=== PATIENT | male | born 1980 | race Caucasian/White ===

== ENCOUNTER 2016-10-29 20:02 | Inpatient (IN) | payer OTHER ==
[2016-10-29 21:04] VITALS: BP 134/81; PULSE 103; TEMP 97.6; BMI 26.4
--- NOTE | 2016-10-29 21:20 | HP ---
CIWA Score - CIWA Score Nausea/Vomitin-Mild Nausea/No Vomiting Muscle Tremors: 4-Moderate,w/Arms Extend Anxiety: 4-Mod. Anxious/Guarded Agitation: 4-Moderately Restless Paroxysmal Sweats: 3 Orientation: 2-Disoriented Date<2 days Tacttile Disturbances: 0-None Auditory Disturbances: 0-None Visual Disturbances: 0-None Headache: 2-Mild CIWA-Ar Total Score: 20 Admission ROS BHS - HPI Chief Complaint: C/O WITHDRAWAL SX'S. SEEKING DETOX TXMENT. Allergies/Adverse Reactions: Allergies Allergy/AdvReac Type Severity Reaction Status Date / Time No Known Allergies Allergy Verified 10/29/16 20:54 History of Present Illness: 36 Y.O. MALE WITH BENZO DEPENDENCE HERE FOR DETOX TXMENT. DENIES ANY SIGNIFICANT CLEAN TIME. Exam Limitations: No Limitations - Ebola screening Have you traveled outside of the country in the last 21 days: No (N) Have you had contact with anyone from an Ebola affected area: No Have you been sick,other than usual withdrawal symptoms: No Do you have a fever: No - Review of Systems Constitutional: Chills, Loss of Appetite, Night Sweats, Changes in sleep EENT: reports: No Symptoms Reported Respiratory: reports: No Symptoms reported Cardiac: reports: No Symptoms Reported GI: reports: Nausea, Poor Appetite : reports: No Symptoms Reported Musculoskeletal: reports: No Symptoms Reported, Back Pain Integumentary: reports: No Symptoms Reported Neuro: reports: No Symptoms reported Endocrine: reports: No Symptoms Reported Hematology: reports: No Symptoms Reported Psychiatric: reports: Anxious, Disorientated Other Systems: Reviewed and Negative Patient History - Patient Medical History Hx Anemia: No Hx Asthma: No Hx Chronic Obstructive Pulmonary Disease (COPD): No Hx Cancer: No Hx Cardiac Disorders: No Hx Congestive Heart Failure: No Hx Hypertension: No Hx Hypercholesterolemia: No Hx Pacemaker: No HX Cerebrovascular Accident: No Hx Seizures: No Hx Dementia: No Hx Diabetes: No Hx Gastrointestinal Disorders: No Hx Liver Disease: No Hx Genitourinary Disorders: No Hx Sexually Transmitted Disorders: No Hx Renal Disease (ESRD): No Hx Thyroid Disease: No Hx Human Immunodeficiency Virus (HIV): No Hx Hepatitis C: No Hx Depression: Yes Hx Suicide Attempt: No Hx Bipolar Disorder: No Hx Schizophrenia: No Other Medical History: ADD - Patient Surgical History Past Surgical History: No Hx Neurologic Surgery: No Hx Cataract Extraction: No Hx Cardiac Surgery: No Hx Lung Surgery: No Hx Breast Surgery: No Hx Breast Biopsy: No Hx Abdominal Surgery: No Hx Appendectomy: No Hx Cholecystectomy: No Hx Genitourinary Surgery: No Hx Section: No Hx Orthopedic Surgery: No Anesthesia Reaction: No - PPD History Previous Implant?: Yes Documented Results: Negative w/o proof Implanted On Prior [facility] Admission?: No PPD to be Administered?: Yes - Smoking Cessation Smoking history: Current every day smoker Have you smoked in the past 12 months: Yes Aproximately how many cigarettes per day: 20 Cigars Per Day: 0 Hx Chewing Tobacco Use: No Initiated information on smoking cessation: Yes 'Breaking Loose' booklet given: 10/29/16 - Substance & Tx. History Hx Alcohol Use: No Hx Substance Use: Yes Substance Use Type: Marijuana, Tranquilizers (XANAX/ PCP) Hx Substance Use Treatment: No - Substances Abused Alprazolam (Xanax) Route: Oral Frequency: Daily Amount used: 10mg Age of first use: 14 Date of Last Use: 10/29/16 PCP Route: Smoking Frequency: Daily Amount used: 5 blunts Age of first use: 15 Date of Last Use: 10/29/16 Marijuana/Hashish Route: Smoking Frequency: Daily Amount used: 1 blunts Age of first use: 15 Date of Last Use: 10/29/16 Family Disease History - Family Disease History Family History: Unable to Obtain Admission Physical Exam BHS - Vital Signs Vital Signs: Vital Signs - 24 hr 10/29/16 21:00 Temperature 97.6 F Pulse Rate 103 H Respiratory 20 Rate Blood Pressure 134/81 - Physical General Appearance: Yes: Appropriately Dressed, Mild Distress, Tremorous, Anxious, Other (SOILED FINGER NAILS) HEENTM: Yes: EOMI, Normocephalic, ARTHUR, Pharynx Normal, Other (POOR DENTITION) Respiratory: Yes: Chest Non-Tender, Lungs Clear, Normal Breath Sounds, No Respiratory Distress, No Accessory Muscle Use Neck: Yes: No masses,lesions,Nodules, Supple, Trachea in good position Breast: Yes: Breast Exam Deferred Cardiology: Yes: Regular Rhythm, Regular Rate, S1, S2 Abdominal: Yes: Normal Bowel Sounds, Non Tender, Flat, Soft Genitourinary: Yes: Within Normal Limits Back: Yes: Normal Inspection Musculoskeletal: Yes: full range of Motion, Gait Steady Extremities: Yes: Normal Capillary Refill, Normal Range of Motion, Non-Tender, Tremors Neurological: Yes: Alert, Motor Strength 5/5 Integumentary: Yes: Normal Color, Dry, Warm Lymphatic: Yes: Within Normal Limits - Diagnostic (1) Sedative, hypnotic or anxiolytic dependence with withdrawal, uncomplicated Status: Chronic (2) Cannabis dependence, uncomplicated Status: Chronic (3) PCP dependence Status: Chronic (4) Nicotine dependence Status: Chronic Qualifiers: Nicotine product type: cigarettes Substance use status: uncomplicated Qualified Code(s): F17.210 - Nicotine dependence, cigarettes, uncomplicated Cleared for Admission [facility] - Detox or Rehab [facility] Level of Care: Medically Managed Detox Regimen/Protocol: Valium [facility] Breath Alcohol Content Breath Alcohol Content: 0 Urine Drug Screen - Results Drug Screen Negative: No Urine Drug Screen Results: THC-Marijuana, PCP-Phencyclidine, BZO-Benzodiazepines
[2016-10-29] MEDS ORDERED: LOPERAMIDE HCL 2 MG CAPSULE PO PRN (21:28)
[2016-10-29] MEDS ORDERED: MAGNESIUM HYDROX 2400MG/30ML ORAL SUSPENSION 30 ML CUP PO PRN (21:28)
[2016-10-29] MEDS ORDERED: MAG HYDROX/AL HYDROX/SIMETH 30 ML UNIT-DOSE CUP PO PRN (21:28)
[2016-10-29] MEDS ORDERED: IBUPROFEN 400 MG TABLET (FP) PO PRN (21:28)
[2016-10-29] MEDS ORDERED: diazePAM 5 MG TABLET PO ONE (21:28)
[2016-10-29] MEDS ORDERED: MENTHOL/PHENOL 1 EACH UD MM PRN (21:28)
[2016-10-29] MEDS ORDERED: MAGNESIUM CITRATE 300 ML BOTTLE PO PRN (21:28)
[2016-10-29] MEDS ORDERED: ACETAMINOPHEN 325 MG TABLET (FP) PO PRN (21:28)
[2016-10-29] MEDS ORDERED: P-EPHED 60MG/TRIPROLIDI 2.5MG TABLET PO PRN (21:28)
[2016-10-29] MEDS ORDERED: diazePAM 5 MG TABLET PO PRN (21:28)
[2016-10-29] MEDS ORDERED: hydrOXYzine PAMOATE 50 MG CAPSULE (FP) PO PRN (21:28)
[2016-10-29] MEDS ORDERED: guaiFENesin/D-METHORPHAN HB 10 ML UNIT-DOSE CUPS PO PRN (21:28)
[2016-10-29] MEDS ORDERED: NICOTINE POLACRILEX 2 MG GUM BC PRN (21:28)
[2016-10-29] MEDS ORDERED: diphenhydrAMINE HCL 50 MG CAPSULE PO PRN (21:28)
[2016-10-29] MEDS ORDERED: NICOTINE 21 MG/24 HOURS TOPICAL PATCH TD SCH (21:30)
[2016-10-29] MEDS ORDERED: THIAMINE HCL 100 MG TABLET (FP) PO SCH (22:00)
[2016-10-29 23:16] LABS: URINE APPEARANCE CLEAR; URINE BILIRUBIN NEGATIVE (NEGATIVE); URINE BLOOD NEGATIVE (NEGATIVE); URINE COLOR LTYELLOW; URINE GLUCOSE (UA) NEGATIVE (NEGATIVE); URINE KETONE NEGATIVE (NEGATIVE); URINE LEUK ESTERASE NEGATIVE (NEGATIVE); URINE NITRITE NEGATIVE (NEGATIVE); URINE PROTEIN NEGATIVE (NEGATIVE); URINE UROBILINOGEN NEGATIVE E.U./dl (0.2-1.0)
[2016-10-30] MEDS: diazePAM 5 MG TABLET PO SCH ×2 (02:18→05:48)
--- NOTE | 2016-10-30 07:54 | PN ---
S Progress Note Note: PT ADMINISTRATIVELY DISCHARGED DUE TO NON COMPLIANCE WITH UNIT REGULATIONS. CLIENT USING FACILITY COMPUTERS AFTER BEING TOLD HE CANNOT. LEFT UNIT IN STABLE CONDITION ESCORTED BY FACILITY SECURITY.
--- NOTE | 2016-10-30 08:06 | DS ---
[facility] Detox Discharge Summary Admission Date: 10/29/16 - History Present History: Cannabis Dependence, Sedative Dependence (BENZO), Pcp Dependence Pertinent Past History: DENIES - Physical Exam Results Vital Signs: Vital Signs Temperature 97.6 F 10/29/16 21:00 Pulse Rate 103 H 10/29/16 21:00 Respiratory Rate 18 10/30/16 03:30 Blood Pressure 134/81 10/29/16 21:00 O2 Sat by Pulse Oximetry (%) Pertinent Admission Physical Exam Findings: WITHDRAWAL SX'S - Medication Discharge Medications: Ambulatory Orders NK [No Known Home Medication] 05/12/15 - Diagnosis (1) Sedative, hypnotic or anxiolytic dependence with withdrawal, uncomplicated Status: Chronic (2) Cannabis dependence, uncomplicated Status: Chronic (3) PCP dependence Status: Chronic (4) Nicotine dependence Status: Chronic Qualifiers: Nicotine product type: cigarettes Substance use status: uncomplicated Qualified Code(s): F17.210 - Nicotine dependence, cigarettes, uncomplicated - AMA Did Patient Leave Against Medical Advice: No (ADMINISTRATIVE DC)
[2016-10-30] MEDS ORDERED: PRENATAL VITAMINS W/ FOLIC ACID TABLET (FP) PO SCH (10:00)
--- NOTE | 2016-10-30 16:54 | EKG ---
Test Reason : Blood Pressure : / mmHG Vent. Rate : 084 BPM Atrial Rate : 084 BPM P-R Int : 158 ms QRS Dur : 090 ms QT Int : 360 ms P-R-T Axes : 065 083 060 degrees QTc Int : 425 ms NORMAL SINUS RHYTHM NORMAL ECG WHEN COMPARED WITH ECG OF 12-MAY-2015 16:54, NO SIGNIFICANT CHANGE WAS FOUND Confirmed by GABRIELA FUCHS MD ([id number]) on 10/30/2016 4:54:31 PM Referred By: Confirmed By:GABRIELA FUCHS MD
[2016-10-31] MEDS ORDERED: diazePAM 5 MG TABLET PO SCH (10:00)
[2016-11-02] MEDS ORDERED: diazePAM 5 MG TABLET PO SCH (10:00)
== END 2016-10-30 06:30 | disposition home or self-care (01) | DRG 897 ==
LOC: YASAS 20:02 → Y6N 21:03
PROVIDERS: ADMIT Internal Medicine Addiction Medicine; ATTEND Internal Medicine Addiction Medicine
PROC: HZ2ZZZZ Detoxification Services for Substance Abuse Treatment (ICD-10-PCS; principal; 2016-10-30)
DX: F13.230 Sedative, hypnotic or anxiolytic dependence with withdrawal, uncomplicated (principal); F16.20 Hallucinogen dependence, uncomplicated; F12.20 Cannabis dependence, uncomplicated; F17.210 Nicotine dependence, cigarettes, uncomplicated; F91.8 Other conduct disorders
CPT/HCPCS: 81003; 93005; 93010